=== PATIENT | female | born 1935 | race Caucasian/White ===

== ENCOUNTER → 2020-05-30 | Outpatient (CLI) | payer MEDICARE ==
[~2020-05-30] MED LIST: ALLO-45 PO; CARV25 PO; CITA-144 PO; CLON0.2T2 PO; CLON1PAT14 TD; COLC0.6T73 PO; DIPH12.533 PO; GABA-1216 PO; GLIM2 PO; HYDR-4061 PO; HYDR25TA2 PO; HYDR50TA36 PO; LORA-999 PO; LOSA50TA37 PO; SIMV5TAB59 PO
== END | disposition home or self-care (01) ==
LOC: RADPV 08:36
PROVIDERS: ATTEND Internal Medicine Cardiovascular Disease
DX: I08.0 Rheumatic disorders of both mitral and aortic valves (principal); I50.9 Heart failure, unspecified; I70.0 Atherosclerosis of aorta
CPT/HCPCS: 71046; 93306